=== PATIENT | male | born 1960 | race Caucasian/White ===

== ENCOUNTER 2018-12-14 19:00 | Emergency (ER) | payer OTHER ==
--- NOTE | 2018-12-14 20:43 | RAD ---
EXAM: XR Abdomen 2 Views With XR Chest CLINICAL HISTORY: 58 years old and is Male; abd discomfort TECHNIQUE: Frontal view of the chest, frontal view of the abdomen/pelvis and upright or decubitus view of the abdomen. COMPARISON: No relevant prior studies available. FINDINGS: Limitations: None. Lungs: Unremarkable. No consolidation. Pleural space: Unremarkable. No pneumothorax. Heart: Unremarkable. No cardiomegaly. Mediastinum: Unremarkable. Intraperitoneal space: No free air. Gastrointestinal tract: Air and stool scattered throughout nondilated intestinal loops. Bones/joints: Unremarkable. IMPRESSION: No acute findings. Electronically signed by: Analy Watson MD 12/14/2018 8:40 PM CDT
[2018-12-14] MEDS ORDERED: ONDANSETRON ODT 8 MG TAB SL ONE (21:50)
[2018-12-14] MEDS ORDERED: ALUM & MAG HYDROX-SIMETHICONE 30 ML, LIDOCAINE VISCOUS 2% 15 ML PO ONE ×2 (21:50)
[2018-12-14] MEDS ORDERED: LIDOCAINE HCL 2% (MOUTH-THROAT) 15 ML UD ONE (21:52)
[2018-12-14] MEDS ORDERED: ALUM & MAG HYDROX-SIMETHICONE 30 ML UD ONE (21:53)
[2018-12-14 22:04] VITALS: O2SAT 98
[2018-12-14] MEDS ORDERED: SODIUM CHLORIDE 0.9% 1000ML 1,000 ML IVS ONE (22:12)
[2018-12-14] MEDS ORDERED: SUCRALFATE 1 GM/10 ML 1 GM UD PO ONE (22:22)
[2018-12-14] MEDS ORDERED: OMEPRAZOLE CAP 20 MG CAP PO ONE (22:22)
--- NOTE | 2018-12-14 22:28 | ED.PDOC ---
History of Present Illness - General Chief Complaint: Abdominal Pain Stated Complaint: right uper abd pain Time Seen by Provider: 12/14/18 19:13 Source: patient Exam Limitations: no limitations - History of Present Illness Initial Comments: the patientis a 58-year-old male presenting with 2-1/2 days primarily epigastric discomfort with some associated nausea and one episode of vomiting. Pain is made worse with food. He has had pancreatitis several years ago. He reports this feels a little bit like it. No fevers. No constipation. Mild diarrhea. He does drink 2-3 drinks of alcohol per day. He does still have his gallbladder. He has had a bowel resection in the past but that was many years ago. Severity: mild Improving Factors: nothing Worsening Factors: eating Associated Symptoms: loss of appetite, nausea/vomiting Allergies/Adverse Reactions: Allergies IV Dye Allergy (Uncoded 12/14/18 19:45) Home Medications: Ambulatory Orders Famotidine 20 mg PO DAILY #14 tab 12/14/18 Lexapro 12/14/18 Ondansetron [Ondansetron Odt] 4 mg PO Q8HR PRN #10 tab 12/14/18 Sucralfate Tab [Carafate Tab] 1 gm PO QID #60 tab 12/14/18 Varenicline Tartrate [Chantix] 1 mg PO DAILY 12/14/18 Review of Systems - Review of Systems Constitutional: States: no symptoms reported EENTM: States: no symptoms reported Respiratory: States: no symptoms reported Cardiology: States: no symptoms reported Gastrointestinal/Abdominal: States: abdominal pain, diarrhea, nausea, vomiting Genitourinary: States: no symptoms reported Musculoskeletal: States: no symptoms reported Skin: States: no symptoms reported Neurological: States: no symptoms reported Endocrine: States: no symptoms reported All other Systems: No Change from Baseline Past Medical History (General) - Patient Medical History Hx Diabetes: No - Vaccination History Hx Tetanus, Diphtheria Vaccination: No Hx Influenza Vaccination: No Immunizations Up to Date: No - Social History Hx Alcohol Use: Yes Family Medical History - Family History Father Family History: Unknown Physical Exam - Physical Exam General Appearance: Alert, No apparent distress Eye Exam: bilateral normal Ears, Nose, Throat: hearing grossly normal, normal ENT inspection, normal pharynx Neck: full range of motion, supple Respiratory: lungs clear, normal breath sounds, no respiratory distress, no accessory muscle use Cardiovascular/Chest: normal peripheral pulses, regular rate, rhythm, no edema Peripheral Pulses: radial,right: 2+, radial,left: 2+, dorsalis pedis,right: 2+, dorsalis pedis,left: 2+ Gastrointestinal/Abdominal: soft, other - mild epigastric discomfort palpation. No definite rebound. Rectal Exam: deferred Back Exam: no CVA tenderness, no vertebral tenderness Extremity: normal range of motion, non-tender, normal inspection, no pedal edema, normal capillary refill Neurologic: christian counselor II-XII nml as tested, alert, normal mood/affect, oriented x 3 Skin Exam: normal color Comments: Vital Signs - 24 hr 12/14/18 12/14/18 12/14/18 19:34 20:30 21:07 Temperature 98.4 F Pulse Rate [ 69 98 H 63 Left Apical] Respiratory 18 20 18 Rate Blood Pressure 162/115 150/109 156/111 [Left Arm] O2 Sat by Pulse 99 98 99 Oximetry 12/14/18 22:00 Temperature Pulse Rate [ 65 Left Apical] Respiratory 20 Rate Blood Pressure 158/104 [Left Arm] O2 Sat by Pulse 98 Oximetry Progress - Progress Progress: 12/14/18 22:28 the patient is a 58-year-old male presenting to the emergency room secondary to a couple of days of nausea with 1 episode of vomiting. Laboratory work fails to show any elevation of white blood cell count, LFTs or pancreatic enzymes. Urinalysis does show some mild dehydration. This is most likely a gastritis or gastroenteritis. The patient does need to increase his fluid intake. He needs to maintain a bland low fat diet for now. He needs to avoid alcohol for now. He is going to be written for Zofran for any nausea and he will be placed on famotidine and Carafate for the next 2 weeks to reduce any gastritis issues. obviously if the patient is worsening or failing to improve then additional workup would be warranted. Follow-up with primary care doctor towards the end of the week otherwise. He did receive a liter of IV fluids here for hydration purposes. ER warnings were given. - Results/Orders Results/Orders: acute abdominal series fails to show any acute pathology. No obstruction. Laboratory Tests 12/14/18 12/14/18 12/14/18 20:07 20:07 21:35 WBC 8.9 RBC 4.66 L Hgb 15.5 Hct 45.1 MCV 96.9 H MCH 33.2 H MCHC 34.3 RDW 13.7 Plt Count 248 MPV 7.9 Absolute Neuts (auto) 5.70 Absolute Lymphs (auto) 2.10 Absolute Monos (auto) 1.00 H Absolute Eos (auto) 0.10 Absolute Basos (auto) 0.10 Neutrophils % 64.0 Lymphocytes % 23.9 Monocytes % 10.7 H Eosinophils % 0.7 L Basophils % 0.7 Sodium 132 L Potassium 3.8 Chloride 99 L Carbon Dioxide 23 Anion Gap 13.8 BUN 13 Creatinine 0.78 BUN/Creatinine Ratio 16.7 Random Glucose 97 Serum Osmolality 264.6 L Calcium 9.2 Magnesium 1.8 Total Bilirubin 0.7 AST 21 ALT 17 Alkaline Phosphatase 69 Creatine Kinase 51 CK-MB (CK-2) 1.2 CK-MB (CK-2) % Not Reportable Troponin I < 0.02 B-Natriuretic Peptide 35.7 Serum Total Protein 7.2 Albumin 3.7 Globulin 3.5 Albumin/Globulin Ratio 1.1 Amylase 45 Lipase 33 Urine Color Yellow Urine Appearance Clear Urine pH 5.5 Ur Specific [place] >= 1.030 Urine Protein 100 H Urine Glucose (UA) Negative Urine Ketones 15 H Urine Blood Moderate H Urine Nitrite Negative Urine Bilirubin Small H Urine Urobilinogen 0.2 Ur Leukocyte Esterase Negative Urine RBC 0 Urine WBC 1-3 Ur Epithelial Cells 1-3 Urine Bacteria Rare Urine Mucus Moderate Departure - Departure Clinical Impression: Gastritis Qualifiers: Gastritis type: unspecified gastritis Chronicity: acute Gastritis bleeding: without bleeding Qualified Code(s): K29.00 - Acute gastritis without bleeding Disposition: Discharge to Home or Self Care Condition: Fair Departure Forms: ED Discharge - Pt. Copy, Patient Portal Self Enrollment Diet: bland diet Activity: increase activity as tolerated Prescriptions: Ondansetron [Ondansetron Odt] 4 mg PO Q8HR PRN #10 tab PRN Reason: Nausea/Vomiting Famotidine 20 mg PO DAILY #14 tab Sucralfate Tab [Carafate Tab] 1 gm PO QID #60 tab Home Medications: Ambulatory Orders Famotidine 20 mg PO DAILY #14 tab 12/14/18 Lexapro 12/14/18 Ondansetron [Ondansetron Odt] 4 mg PO Q8HR PRN #10 tab 12/14/18 Sucralfate Tab [Carafate Tab] 1 gm PO QID #60 tab 12/14/18 Varenicline Tartrate [Chantix] 1 mg PO DAILY 12/14/18 Additional Instructions: the patient is a 58-year-old male presenting to the emergency room secondary to a couple of days of nausea with 1 episode of vomiting. Laboratory work fails to show any elevation of white blood cell count, LFTs or pancreatic enzymes. Urinalysis does show some mild dehydration. This is most likely a gastritis or gastroenteritis. The patient does need to increase his fluid intake. He needs to maintain a bland low fat diet for now. He needs to avoid alcohol for now. He is going to be written for Zofran for any nausea and he will be placed on famotidine and Carafate for the next 2 weeks to reduce any gastritis issues. obviously if the patient is worsening or failing to improve then additional workup would be warranted. Follow-up with primary care doctor towards the end of the week otherwise. He did receive a liter of IV fluids here for hydration purposes. ER warnings were given.
[2018-12-14 23:05] VITALS: BP 159/114
[2018-12-14 23:12] VITALS: TEMP 98.2
== END 2018-12-14 23:09 | disposition home or self-care (01) ==
LOC: ER 19:00
DX: K29.00 Acute gastritis without bleeding (principal); Z91.041 Radiographic dye allergy status
CPT/HCPCS: 74019; 80053; 81001; 82150; 82550; 82553; 83690; 83735; 83880; 84484; 85025; J7030

== ENCOUNTER → 2020-06-29 | Outpatient (CLI) | payer OTHER ==
--- NOTE | 2020-06-29 21:57 | CT ---
CT ABDOMEN PELVIS WITHOUT IV CONTRAST HISTORY: 59 years Male change in bowel habit COMPARISON: None. TECHNIQUE: Helical tomographic images of the abdomen and pelvis were obtained without the use of intravenous contrast. Coronal and sagittal reformatted images were also provided. This exam was performed according to our departmental dose-optimization program, which includes automated exposure control, adjustment of the mA and/or kV according to patient size and/or use of iterative reconstruction technique. FINDINGS: Included thorax: Unremarkable. Liver: There is an approximately 2.6 cm lobular hypoattenuating lesion in the expected location of the biliary confluence at the raúl hepatis. Liver is otherwise unremarkable. Gallbladder and biliary ducts: Gallbladder appears unremarkable. No extrahepatic biliary ductal dilatation appreciated. Pancreas: Unremarkable. Spleen: Unremarkable. Adrenal glands: Unremarkable. Kidneys and ureters: Unremarkable. Urinary bladder: Mildly distended. Mild diffuse thickening of the urinary bladder wall, nonspecific. Reproductive organs: Prostate appears unremarkable. Bowel: Intramural fat deposition is seen throughout the large bowel from the cecum to the descending colon. This finding can be seen in the setting of chronic inflammatory bowel disease, but may also be an incidental finding, more commonly in the setting of obesity. No bowel wall thickening or obstruction observed. No pericolonic inflammatory changes identified. Numerous sigmoid diverticula are present. Appendix is unremarkable Lymph nodes: No lymphadenopathy detected. Peritoneal cavity: No free intraperitoneal fluid or free air detected. Vessels: There are scattered atherosclerotic changes noted. Abdominal wall: No acute process detected. Bones: No acute process detected. IMPRESSION: Intramural fat deposition within the colon which can be incidental, typically in the setting of obesity, but may also be seen in the setting of chronic inflammatory bowel disease. Recommend correlation with history. 2.6 cm lobular hypoattenuating lesion within the liver at the expected location of the biliary confluence. Focal fat deposition is commonly seen at this location although a lobular appearance would be slightly atypical. Other differential considerations would include intrahepatic biliary dilatation, such as in the setting of primary sclerosing cholangitis, or neoplastic process such as cholangiocarcinoma. If there is a history of chronic inflammatory bowel disease, this would raise suspicion of the latter entities. Liver protocol CT or MRI may provide clarification. Diffuse urinary bladder wall thickening, which may be secondary to incomplete distention. Chronic outlet obstruction, infection, or inflammatory processes may mimic this appearance. Electronically signed by: Earnest Banuelos MD 06/29/2020 9:56 PM [employer]
== END ==
LOC: CT 08:21
PROVIDERS: ATTEND Family Medicine
DX: R19.4 Change in bowel habit (principal); K76.9 Liver disease, unspecified; N32.89 Other specified disorders of bladder

== ENCOUNTER → 2020-07-11 | Outpatient (CLI) | payer OTHER | LOC: LAB.O 11:52 | PROVIDERS: ATTEND Internal Medicine Hematology & Oncology | DX: D75.1 Secondary polycythemia (principal) ==